=== PATIENT | male | born 1955 | race Caucasian/White ===

== ENCOUNTER 2019-12-16 09:21 | Day surgery (SDC) | payer MEDICARE ==
[~2019-12-16] VITALS: Ht 175.3 cm; Wt 120.8 kg
[2019-12-16] VITALS (9 sets, daily range): BP systolic 120–148; BP diastolic 78–92
[~2019-12-16 09:21] MED LIST: CYAN100070 PO; DOCUMENT DATE & TIME OF BETA-BLOCKER PO ONE; DUTA0.5C17 PO; EXEN10PE3 SQ; FLO0.4C PO; INSU100I31 SQ; LEVO175T2 PO; LISI2.5T2 PO; METF-438 PO; METO-539 PO; MULT-342 PO; WARF10TA50 PO; ceFAZolin 2gm in dextrose, iso 50 ML IV ONE; cefazolin/dext.iso 2gm/100ml 100 ML IV ONE; famotidine 20mg tablet PO ONE; ringers solution, lacted 1,000 ML IV SCH
[2019-12-16 10:40] LABS: PRE OP INR 1.1 INR; PRE OP PROTIME 10.8 SECONDS (9.0-12.0)
[2019-12-16] MEDS ORDERED: BUPIVAcaine/PF 2.5 mg/ml (0.25%) 30ml vial ONE (10:47)
[2019-12-16] MEDS ORDERED: bacitracin 15gm ointment TP ONE (11:04)
[2019-12-16] MEDS ORDERED: sevoflurane 250ml liquid IH ONE (12:04)
[2019-12-16] MEDS ORDERED: fentaNYL/PF 50MCG/1 ML 2ML syringe ONE (12:09)
[2019-12-16] MEDS ORDERED: midazolam 2 mg/2 ml injection ONE (12:09)
[2019-12-16] MEDS ORDERED: ringers solution, lacted 1,000 ML IV SCH (12:28)
[2019-12-16] MEDS ORDERED: proCHLORperazine 10 MG/2 ml inj IV PRN (12:30)
[2019-12-16] MEDS ORDERED: acetaminophen 1,000mg/100ml IV 100 ML IV PRN (12:30)
[2019-12-16] MEDS ORDERED: labetalol 20mg/4ml (5mg/ml) syringe IV PRN (12:30)
[2019-12-16] MEDS ORDERED: hydrALAZINE 20mg/ml inj. IV PRN (12:30)
[2019-12-16] MEDS ORDERED: ondansetron/PF 4mg/2ml inj IV PRN (12:30)
[2019-12-16] MEDS ORDERED: morphine 4 MG/ML inj SYRINge IV PRN (12:30)
[2019-12-16] MEDS ORDERED: meperidine/PF 25mg/ml syringe IV PRN ×2 (12:30)
[2019-12-16] MEDS ORDERED: morphine 2 MG/ML inj. syringe IV PRN (12:30)
[2019-12-16] MEDS ORDERED: propofol inj 20 ML IV ONE (12:52)
[2019-12-16] MEDS ORDERED: ondansetron/PF 4mg/2ml inj ONE (12:52)
[2019-12-16] MEDS ORDERED: ePHEDrine 50MG/ML INJ. ONE (12:52)
[2019-12-16] MEDS ORDERED: 0.9 % SODIUM CHLORIDE 10 ML VIAL ONE (12:52)
[2019-12-16] MEDS ORDERED: LIDOcaine 2% (20mg/ml) 5ml vial ONE (12:52)
[2019-12-16] MEDS ORDERED: dexamethasone sod phosphate 4mg/ml inj. ONE (12:52)
[2019-12-16] MEDS ORDERED: ROPIVAcaine 0.5% (5mg/ml) 30ml vial ONE (14:10)
[2019-12-16] MEDS ORDERED: morphine 10mg/ml inj. ONE (14:10)
--- NOTE | 2019-12-16 14:39 | NUR ---
RECEIVED FROM OR VIA [facility] ACCOMPANIED BY ANESTHESIOLOGIST DR GUTIÉRREZ, REPORT GIVEN. PT AWAKE AND ALERT, NEAL, SKIN PINK AND WARM,VSS, 20 GAUGE PIV L HAND PATENT AND RUNNING LR AT 100 ML/HR. R FOOT DRESSING WITH SPLINT CDI, GOOD CAP REFILL. COMPLAIN OF PAIN AT A LEVEL 10.
[2019-12-16] MEDS: meperidine/PF 25mg/ml syringe IV PRN ×2 (14:46→15:09)
--- NOTE | 2019-12-16 15:34 | NUR ---
PT AWAKE AND ALERT, NEAL, SKIN PINK AND WARM,VSS, 20 GAUGE PIV L HAND DC/D WITH CATH TIP INTACT. R FOOT DRESSING WITH SPLINT CDI, GOOD CAP REFILL. COMPLAIN OF PAIN AT A LEVEL 4-5. DISCHARGE INSTRUCTIONS GIVEN AND PT VERBALIZED UNDERSTANDING. TRANSPORTED TO IN PERSONAL VEHICLE TO HOME.
[2019-12-18] MEDS ORDERED: LEVO50TA8 PO (11:25)
[2019-12-18] MEDS ORDERED: ASPI-611 PO (11:27)
[2019-12-18] MEDS ORDERED: METO25TA6 PO (11:27)
[2019-12-18] MEDS ORDERED: ATOR20TA66 PO (13:46)
[2019-12-18] MEDS ORDERED: TICA90TA PO (13:46)
[2019-12-18] MEDS ORDERED: METO-395 PO (13:46)
== END 2019-12-16 16:09 | disposition home or self-care (01) ==
LOC: PAS 09:21
PROVIDERS: ATTEND Podiatrist Foot & Ankle Surgery
DX: S96.011A Strain of muscle and tendon of long flexor muscle of toe at ankle and foot level, right foot, initial encounter (principal); I25.10 Atherosclerotic heart disease of native coronary artery without angina pectoris; E11.9 Type 2 diabetes mellitus without complications; E66.9 Obesity, unspecified; Z68.39 Body mass index [BMI] 39.0-39.9, adult; I42.9 Cardiomyopathy, unspecified; G89.18 Other acute postprocedural pain; M19.90 Unspecified osteoarthritis, unspecified site; N40.0 Benign prostatic hyperplasia without lower urinary tract symptoms; Z98.890 Other specified postprocedural states; Z86.73 Personal history of transient ischemic attack (TIA), and cerebral infarction without residual deficits; Z95.5 Presence of coronary angioplasty implant and graft; Z96.652 Presence of left artificial knee joint; Z87.11 Personal history of peptic ulcer disease; Z79.01 Long term (current) use of anticoagulants; Z88.8 Allergy status to other drugs, medicaments and biological substances; Z82.49 Family history of ischemic heart disease and other diseases of the circulatory system; Z83.6 Family history of other diseases of the respiratory system; X58.XXXA Exposure to other specified factors, initial encounter; Y93.89 Activity, other specified; Y92.89 Other specified places as the place of occurrence of the external cause; Y99.8 Other external cause status
CPT/HCPCS: 27658; 28740; 36415; 64450; 73620; 76000; 82948; 85610; 85730; A6223; C1713; C9359; J1100; J2001; J2175; J2250; J2270; J2405; J2704; J3010; J3490; J7120; A4215; A4618; A6253; A6446; A6449; A7000; J2795

== ENCOUNTER 2024-02-16 10:54 | Observation (INO) | payer MEDICARE ==
[~2024-02-16] VITALS: Ht 175.3 cm; Wt 130.7 kg
[~2024-02-16 10:54] MED LIST changes: +ASPI-611 PO; +ATOR20TA66 PO; +CLOP75TA34 PO; -DOCUMENT DATE & TIME OF BETA-BLOCKER PO ONE; -DUTA0.5C17 PO; +DUTA0.5C36 PO; -LEVO175T2 PO; +LEVO50TA8 PO; +LISI2.5T14 PO; -LISI2.5T2 PO; +METO-395 PO; -METO-539 PO; -ceFAZolin 2gm in dextrose, iso 50 ML IV ONE; -cefazolin/dext.iso 2gm/100ml 100 ML IV ONE; -famotidine 20mg tablet PO ONE; -ringers solution, lacted 1,000 ML IV SCH
[2024-02-16 11:32] LABS: BASOPHILS % (AUTO) 0.3 % (0-1); EOSINOPHILS # (AUTO) 0.1 X10'3 (0-0.9); EOSINOPHILS % (AUTO) 1.7 % (0-6); HEMATOCRIT 41.7 % (42.0-52.0); HEMOGLOBIN 14.4 g/dl (14.0-17.9); LYMPHOCYTES # (AUTO) 1.3 X10'3 (1.1-4.8); LYMPHOCYTES % (AUTO) 17.5 % (21-51); MEAN CORPUSCULAR HEMOGLOBIN 32.1 PG (27.0-31.0); MEAN CORPUSCULAR HGB CONC 34.6 g/dL (33.0-36.5); MEAN CORPUSCULAR VOLUME 92.9 FL (78-98); MEAN PLATELET VOLUME 7.7 FL (7.4-10.4); MONOCYTES # (AUTO) 0.5 X10'3 (0-0.9); MONOCYTES % (AUTO) 6.4 % (2-12); NEUTROPHILS # (AUTO) 5.5 X10'3 (1.8-7.7); NEUTROPHILS % (AUTO) 74.1 % (42-75); PLATELET COUNT 238 X10'3 (140-440); RED BLOOD COUNT 4.49 X10'6 (4.70-6.10); RED CELL DISTRIBUTION WIDTH 13.7 % (11.5-14.5); WHITE BLOOD COUNT 7.4 X10'3 (4.5-11.0)
[2024-02-16 11:47] LABS: ALBUMIN 3.4 G/DL (3.4-5.0); ANION GAP 6 (8-16); BLOOD UREA NITROGEN 22 MG/DL (7-18); BUN/CREATININE RATIO 19.8 (10.0-20.0); CALCIUM 8.9 MG/DL (8.5-10.1); CHLORIDE 102 MMOL/L (99-107); CREATININE 1.11 MG/DL (0.60-1.10); GLUCOSE 373 MG/DL (70-104); POTASSIUM 4.8 MMOL/L (3.5-5.1); PRO BRAIN NATRIURETIC PEPTIDE 77 PG/ML (0-125); SODIUM 133 MMOL/L (135-145); TOTAL CARBON DIOXIDE 24.9 MMOL/L (24-32); eCRCL 65 ML/MIN; eGFR 66 ML/MIN
[2024-02-16] MEDS ORDERED: potassium Cl 20 mEq SR tablet PO PRN ×2 (14:45)
[2024-02-16] MEDS ORDERED: DEXTROSE 15 GM of carb/4 tabs (each vial/BOTTLE has 4 tablets) PO PRN ×2 (14:45)
[2024-02-16] MEDS ORDERED: aminophylline 250mg/10ml inj. IV PRN (14:45)
[2024-02-16] MEDS ORDERED: potassium Cl 40MEQ/1/2NS 520ml 520 ML IV PRN (14:45)
[2024-02-16] MEDS ORDERED: ondansetron/PF 4mg/2ml inj IV PRN (14:45)
[2024-02-16] MEDS: PERFLUTREN PROTEIN-A MICROSPHR (Optison) 0.22 MG/ML 3ML VIAL IV ONE (14:45)
[2024-02-16] MEDS ORDERED: glucagon, human recombinant 1mg kit SUBCUT PRN (14:45)
[2024-02-16] MEDS ORDERED: dextrose 50%-water 50ml dispensing syringe IV PRN ×2 (14:45)
[2024-02-16] MEDS ORDERED: magnesium sulf-water 4G/100mL 100 ML IV PRN (14:45)
[2024-02-16] MEDS ORDERED: mag hydrox/Alum hydrox/simeth 30ml oral suspension PO PRN (14:45)
[2024-02-16] MEDS ORDERED: magnesium sulf-water 2g/50mL 50 ML IV PRN (14:45)
[2024-02-16] MEDS ORDERED: metoprolol tartrate 1mg/ml inj IV PRN (14:45)
[2024-02-16] MEDS ORDERED: nitroGLYCERIN 0.4mg SUBLingual tab SL PRN (14:45)
[2024-02-16] MEDS ORDERED: magnesium hydroxide 30ml (MOM) UD suspension PO PRN (14:45)
[2024-02-16] MEDS ORDERED: acetaminophen 325mg tablet PO PRN (14:45)
[2024-02-16] MEDS: aspirin 325mg tablet, delayed-release (Ecotrin) PO ONE (16:02)
[2024-02-16] MEDS: normal saline 1000ml 1,000 ML IV SCH (16:02)
[2024-02-16] MEDS: INSULIN LISPRO 100 UNIT/ML INSULN.PEN MULTI-DOSE SQ SCH (18:26)
[2024-02-16 19:42] VITALS: PULSE 74; RESP 12; O2SAT 98
[2024-02-16] MEDS: docusate sod 100mg capsule PO SCH (20:00)
[2024-02-16] MEDS: K and/or MAG REPLACEMENT MC SCH (20:00)
[2024-02-16 21:00] VITALS: RESP 18; O2SAT 96
[2024-02-16 22:00] VITALS: BP 128/65; PULSE 87; RESP 18; TEMP 98; O2SAT 98
[2024-02-16] MEDS: insulin glargine (Lantus) pen - multi-dose SQ SCH (22:22)
[2024-02-16] MEDS ORDERED: APIX5TAB3 PO (23:04)
[2024-02-16] MEDS ORDERED: BACL10TA2 PO (23:07)
[2024-02-16] MEDS ORDERED: METO-411 PO (23:09)
[2024-02-17] VITALS (11 sets, daily range): BP systolic 101–153; BP diastolic 54–86; PULSE 63–86; RESP 16–20; TEMP 96.9–98.1; O2SAT 93–98
[2024-02-17 06:24] LABS: BASOPHILS % (AUTO) 0.3 % (0-1); EOSINOPHILS # (AUTO) 0.1 X10'3 (0-0.9); EOSINOPHILS % (AUTO) 2.2 % (0-6); HEMATOCRIT 39.5 % (42.0-52.0); HEMOGLOBIN 13.4 g/dl (14.0-17.9); LYMPHOCYTES # (AUTO) 1.6 X10'3 (1.1-4.8); LYMPHOCYTES % (AUTO) 23.9 % (21-51); MEAN CORPUSCULAR HEMOGLOBIN 31.1 PG (27.0-31.0); MEAN CORPUSCULAR VOLUME 91.6 FL (78-98); MONOCYTES # (AUTO) 0.4 X10'3 (0-0.9); MONOCYTES % (AUTO) 6.1 % (2-12); NEUTROPHILS # (AUTO) 4.5 X10'3 (1.8-7.7); NEUTROPHILS % (AUTO) 67.5 % (42-75); PLATELET COUNT 225 X10'3 (140-440); RED BLOOD COUNT 4.32 X10'6 (4.70-6.10); RED CELL DISTRIBUTION WIDTH 13.6 % (11.5-14.5); WHITE BLOOD COUNT 6.7 X10'3 (4.5-11.0)
[2024-02-17 06:41] LABS: ALANINE AMINOTRANSFERASE 36 U/L (12-78); ALBUMIN 3.2 G/DL (3.4-5.0); ALKALINE PHOSPHATASE 55 IU/L (46-116); ANION GAP 6 (8-16); ASPARTATE AMINO TRANSFERASE 18 U/L (10-37); BILIRUBIN,TOTAL 0.6 MG/DL (0.1-1.0); BLOOD UREA NITROGEN 16 MG/DL (7-18); BUN/CREATININE RATIO 18.8 (10.0-20.0); CHLORIDE 107 MMOL/L (99-107); CREATININE 0.85 MG/DL (0.60-1.10); GLUCOSE 89 MG/DL (70-104); MAGNESIUM 1.6 MG/DL (1.5-2.4); POTASSIUM 3.6 MMOL/L (3.5-5.1); SODIUM 140 MMOL/L (135-145); TOTAL CARBON DIOXIDE 27.4 MMOL/L (24-32); TOTAL PROTEIN 6.4 G/DL (6.4-8.2); eCRCL 84 ML/MIN; eGFR 90 ML/MIN
[2024-02-17] MEDS: regadenoson 0.4mg/5ml syringe IV PRN (09:01)
== END 2024-02-17 13:40 | disposition home or self-care (01) ==
LOC: ER 10:56 → PCU 3S 14:41 → UNDOADMOB 14:41 → PCU 3S 14:54
PROVIDERS: ADMIT Family Medicine; ATTEND Family Medicine
DX: R07.2 Precordial pain (principal); I48.0 Paroxysmal atrial fibrillation; I12.9 Hypertensive chronic kidney disease with stage 1 through stage 4 chronic kidney disease, or unspecified chronic kidney disease; E11.22 Type 2 diabetes mellitus with diabetic chronic kidney disease; N18.2 Chronic kidney disease, stage 2 (mild); I25.10 Atherosclerotic heart disease of native coronary artery without angina pectoris; E78.00 Pure hypercholesterolemia, unspecified; N40.0 Benign prostatic hyperplasia without lower urinary tract symptoms; F03.90 Unspecified dementia, unspecified severity, without behavioral disturbance, psychotic disturbance, mood disturbance, and anxiety; I25.2 Old myocardial infarction; N17.9 Acute kidney failure, unspecified; I48.20 Chronic atrial fibrillation, unspecified; K21.00 Gastro-esophageal reflux disease with esophagitis, without bleeding; E03.9 Hypothyroidism, unspecified; Z79.84 Long term (current) use of oral hypoglycemic drugs; Z79.899 Other long term (current) drug therapy; Z88.1 Allergy status to other antibiotic agents; Z86.718 Personal history of other venous thrombosis and embolism; Z87.11 Personal history of peptic ulcer disease; Z87.19 Personal history of other diseases of the digestive system; Z95.5 Presence of coronary angioplasty implant and graft; Z86.711 Personal history of pulmonary embolism
CPT/HCPCS: 36415; 71045; 78452; 80048; 80053; 82948; 83036; 83735; 83880; 84484; 85025; 87081; 93005; 93017; 93306; 94660; 94760; 96360; 96361; 99284; A9500; G0378; J1815; J2785; J7030

== ENCOUNTER 2024-03-16 10:34 | Inpatient (IN) | payer MEDICARE ==
[~2024-03-16] VITALS: Ht 175.3 cm; Wt 130.0 kg
[2024-03-16] VITALS (14 sets, daily range): BP systolic 113–149; BP diastolic 56–83; PULSE 59–92; RESP 16–17; TEMP 97.7–98.6; O2SAT 93–99
[~2024-03-16 10:34] MED LIST changes: +APIX5TAB3 PO; -ATOR20TA66 PO; +BACL10TA2 PO; -CLOP75TA34 PO; -EXEN10PE3 SQ; -INSU100I31 SQ; -METO-395 PO; +METO-411 PO; -WARF10TA50 PO
[2024-03-16] MEDS ORDERED: dextrose 50%-water 50ml dispensing syringe IV PRN (11:05)
[2024-03-16] MEDS ORDERED: nitroGLYCERIN 0.4mg SUBLingual tab SL PRN ×2 (11:05→14:45)
[2024-03-16] MEDS ORDERED: DEXTROSE 15 GM of carb/4 tabs (each vial/BOTTLE has 4 tablets) PO PRN ×2 (11:05)
[2024-03-16] MEDS ORDERED: glucagon, human recombinant 1mg kit SUBCUT PRN (11:05)
[2024-03-16] MEDS: dextrose 50%-water 50ml dispensing syringe IV PRN (11:29)
[2024-03-16] MEDS: normal saline 1,000 ML IV SCH (11:31)
[2024-03-16] MEDS ORDERED: INSU100V41 SQ (11:32)
[2024-03-16] MEDS ORDERED: FOLI0.4T14 PO (11:32)
[2024-03-16] MEDS ORDERED: DUTA0.5C40 PO (11:32)
[2024-03-16 11:37] LABS: BASOPHILS % (AUTO) 0.3 % (0-1); EOSINOPHILS # (AUTO) 0.1 X10'3 (0-0.9); EOSINOPHILS % (AUTO) 1.7 % (0-6); HEMATOCRIT 41.8 % (42.0-52.0); HEMOGLOBIN 14.2 g/dl (14.0-17.9); LYMPHOCYTES # (AUTO) 1.9 X10'3 (1.1-4.8); LYMPHOCYTES % (AUTO) 23.3 % (21-51); MEAN CORPUSCULAR HEMOGLOBIN 31.5 PG (27.0-31.0); MEAN CORPUSCULAR HGB CONC 33.9 g/dL (33.0-36.5); MEAN PLATELET VOLUME 7.3 FL (7.4-10.4); MONOCYTES # (AUTO) 0.5 X10'3 (0-0.9); MONOCYTES % (AUTO) 6.3 % (2-12); NEUTROPHILS # (AUTO) 5.5 X10'3 (1.8-7.7); NEUTROPHILS % (AUTO) 68.4 % (42-75); PLATELET COUNT 243 X10'3 (140-440); RED CELL DISTRIBUTION WIDTH 13.7 % (11.5-14.5)
[2024-03-16 11:44] LABS: APTT 26 SECONDS (22-32); PROTHROMBIN TIME 10.3 SECONDS (9.0-12.0)
[2024-03-16 11:47] LABS: ALBUMIN 3.7 G/DL (3.4-5.0); ANION GAP 10 (8-16); BLOOD UREA NITROGEN 20 MG/DL (7-18); BUN/CREATININE RATIO 23.5 (10.0-20.0); CALCIUM 9.5 MG/DL (8.5-10.1); CHLORIDE 104 MMOL/L (99-107); CREATININE 0.85 MG/DL (0.60-1.10); GLUCOSE 80 MG/DL (70-104); POTASSIUM 3.9 MMOL/L (3.5-5.1); SODIUM 140 MMOL/L (135-145); TOTAL CARBON DIOXIDE 26.3 MMOL/L (24-32); eCRCL 84 ML/MIN; eGFR 90 ML/MIN
[2024-03-16] MEDS: diphenhydrAMINE 25mg capsule PO PRN (12:22)
[2024-03-16] MEDS: LORazepam 0.5 MG tablet PO PRN (12:22)
[2024-03-16] MEDS ORDERED: midazolam 1 mg/ML 2ml injection ONE (12:33)
[2024-03-16] MEDS ORDERED: iohexol 350 MG/ML 50ML vial IV ONE ×2 (12:33→13:31)
[2024-03-16] MEDS ORDERED: fentaNYL/PF 50MCG/1 ML 2ML syringe ONE (12:33)
[2024-03-16] MEDS ORDERED: iohexol 350MG/ML 100ml bottle IV ONE (12:33)
[2024-03-16] MEDS ORDERED: LIDOcaine 1% 30ml preserv. free vial ONE (12:33)
[2024-03-16] MEDS ORDERED: enalaprilat dihydrate 2.5mg/2ml vial IV ONE (13:39)
[2024-03-16] MEDS ORDERED: nitroGLYCERIN 500mcg/5mL D5W 5 ML IV ONE (13:41)
[2024-03-16] MEDS ORDERED: nitroGLYCERIN-Tridil 50MG/D5W 250 ML IV ONE (13:42)
[2024-03-16] MEDS ORDERED: HYDROmorphone 1 mg/ml syringe ONE (13:47)
[2024-03-16] MEDS ORDERED: hydrALAZINE 20mg/ml inj. IV ONE (13:52)
[2024-03-16] MEDS ORDERED: HYDROcodone/acetaminophen 5mg/325mg tablet PO PRN (14:45)
[2024-03-16] MEDS ORDERED: nitroGLYCERIN 25mg/250mL D5W 250 ML IV SCH (14:45)
[2024-03-16] MEDS ORDERED: proCHLORperazine 10 MG/2 ml inj IV PRN (14:45)
[2024-03-16] MEDS ORDERED: ondansetron/PF 4mg/2ml inj IV PRN (14:45)
[2024-03-16] MEDS ORDERED: normal saline 1000ml 1,000 ML IV SCH (14:45)
[2024-03-16] MEDS: HYDROcodone/acetaminophen 10/325mg tab PO PRN (14:46)
[2024-03-16] MEDS ORDERED: nitroGLYCERIN-Tridil 50MG/D5W 250 ML IV SCH (14:49)
[2024-03-16] MEDS: HYDROmorphone 1 mg/ml syringe IV SCH (15:14)
[2024-03-16] MEDS: MESSAGE TO NURSING PO ONE ×4 (15:30)
[2024-03-16] MEDS: diphenhydrAMINE 50 mg/ml inj IM ONE (18:55)
[2024-03-16] MEDS: tamsulosin 0.4mg capsule PO SCH (19:18)
[2024-03-16] MEDS: insulin glargine (Lantus) pen - multi-dose SQ SCH (21:17)
[2024-03-17 02:00] VITALS: BP 129/78; PULSE 81; RESP 12; TEMP 97.8; O2SAT 96
[2024-03-17 07:00] VITALS: BP 151/70; PULSE 68; RESP 18; TEMP 97.7; O2SAT 96
[2024-03-17] MEDS: metoprolol succinate 25mg (24-HOUR) SR. Tablet PO SCH (07:48)
[2024-03-17] MEDS: folic acid 0.4mg tablet PO SCH (07:48)
[2024-03-17] MEDS: levoTHYROXINE 25mcg tablet PO SCH (07:48)
[2024-03-17] MEDS: multivitamins, therapeutics tablet PO SCH (07:49)
[2024-03-17] MEDS: cyanocobalamin 500mcg tablet PO SCH (07:49)
[2024-03-17] MEDS: dutasteride 0.5 MG capsule PO SCH (08:27)
[2024-03-17] MEDS ORDERED: dextrose 50%-water 50ml dispensing syringe IV PRN (09:55)
[2024-03-17] MEDS: ceFAZolin inj. 3,000 MG in normal saline 100ml IV soln 100 ML IV ONE (09:55)
[2024-03-17] MEDS: MESSAGE TO PHARMACY IJ ONE (09:55)
[2024-03-17] MEDS ORDERED: insulin glargine (Lantus) pen - multi-dose SQ PRN (09:55)
[2024-03-17] MEDS: MESSAGE TO NURSING PO ONE ×5 (09:55→10:00)
[2024-03-17] MEDS ORDERED: Insulin Reg/NS 100units/100mL 100 ML IV SCH (09:55)
[2024-03-17 11:00] VITALS: BP 119/65; PULSE 62; RESP 18; TEMP 98.2; O2SAT 96
[2024-03-17 11:11] LABS: APTT 25 SECONDS (22-32); PROTHROMBIN TIME 10.7 SECONDS (9.0-12.0)
[2024-03-17 15:00] VITALS: BP 133/74; PULSE 77; RESP 17; TEMP 97.5; O2SAT 95
[2024-03-17 18:00] VITALS: BP 126/81; PULSE 66; RESP 14; TEMP 97.9; O2SAT 94
[2024-03-17] MEDS: OXAZEpam 15mg capsule PO PRN (21:26)
[2024-03-17 22:00] VITALS: BP 144/84; PULSE 78; RESP 14; TEMP 97.3; O2SAT 97
[2024-03-18] VITALS (7 sets, daily range): BP systolic 123–149; BP diastolic 64–86; PULSE 54–87; RESP 15–18; TEMP 97.1–97.8; O2SAT 95–96
[2024-03-18] MEDS: ringers solution, lacted 1,000 ML IV ONE (05:00)
[2024-03-18] MEDS: LORazepam 2 mg/ml vial IV ONE (06:00)
[2024-03-18] MEDS: gabapentin 400mg capsule PO ONE (07:19)
[2024-03-19] VITALS (34 sets, daily range): BP systolic 69–181; BP diastolic 40–90; PULSE 72–92; RESP 12–18; TEMP 97.1–98.7; O2SAT 92–100
[2024-03-19] MEDS: mupirocin 2% nasal ointment 1gm UD NS ONE (05:21)
[2024-03-19] MEDS: ringers solution, lacted 1,000 ML IV ONE (05:30)
[2024-03-19] MEDS: ceFAZolin inj. 3,000 MG in normal saline 100ml IV soln 100 ML IV ONE (05:30)
[2024-03-19] MEDS: LORazepam 2 mg/ml vial IV ONE (05:30)
[2024-03-19 05:57] LABS: MEAN PLATELET VOLUME 7.4 FL (7.4-10.4); WHITE BLOOD COUNT 6.9 X10'3 (4.5-11.0)
[2024-03-19 06:01] LABS: BASOPHILS % (AUTO) 0.3 % (0-1); EOSINOPHILS # (AUTO) 0.2 X10'3 (0-0.9); HEMATOCRIT 39.5 % (42.0-52.0); HEMOGLOBIN 13.6 g/dl (14.0-17.9); LYMPHOCYTES # (AUTO) 1.8 X10'3 (1.1-4.8); LYMPHOCYTES % (AUTO) 26.1 % (21-51); MEAN CORPUSCULAR HEMOGLOBIN 32.1 PG (27.0-31.0); MEAN CORPUSCULAR HGB CONC 34.3 g/dL (33.0-36.5); MEAN CORPUSCULAR VOLUME 93.4 FL (78-98); MONOCYTES # (AUTO) 0.6 X10'3 (0-0.9); MONOCYTES % (AUTO) 8.3 % (2-12); NEUTROPHILS # (AUTO) 4.3 X10'3 (1.8-7.7); NEUTROPHILS % (AUTO) 62.3 % (42-75); PLATELET COUNT 214 X10'3 (140-440); RED BLOOD COUNT 4.23 X10'6 (4.70-6.10); RED CELL DISTRIBUTION WIDTH 13.8 % (11.5-14.5)
[2024-03-19 06:18] LABS: ALBUMIN 3.3 G/DL (3.4-5.0); ANION GAP 10 (8-16); BLOOD UREA NITROGEN 17 MG/DL (7-18); BUN/CREATININE RATIO 19.3 (10.0-20.0); CHLORIDE 102 MMOL/L (99-107); CREATININE 0.88 MG/DL (0.60-1.10); GLUCOSE 150 MG/DL (70-104); POTASSIUM 3.8 MMOL/L (3.5-5.1); SODIUM 139 MMOL/L (135-145); THYROID STIMULATING HORMONE 1.33 ulU/ml (0.34-4.50); TOTAL CARBON DIOXIDE 27.5 MMOL/L (24-32); eCRCL 81 ML/MIN; eGFR 86 ML/MIN
[2024-03-19 08:09] LABS: PROTHROMBIN TIME 10.6 SECONDS (9.0-12.0)
[2024-03-19] MEDS ORDERED: ceFAZolin inj. 3,000 MG in normal saline 100ml IV soln 100 ML IV ONE (08:30)
[2024-03-19] MEDS: Insulin Reg/NS 100units/100mL 100 ML IV SCH ×2 (08:30→15:30)
[2024-03-19] MEDS ORDERED: isoflurane 100ml inhalation liquid IH ONE (08:36)
[2024-03-19] MEDS ORDERED: MIDAZolam 1mg/ml 10ml vial ONE (08:38)
[2024-03-19] MEDS ORDERED: SUfentanil 50mcg/ml 1ml amp IV ONE (08:38)
[2024-03-19 09:06] LABS: ABG BASE EXCESS -0.4 mmol/L (-2.0-2.0); ABG HCO3 24.2 mmol/L (22.0-26.0); ABG OXYGEN SATURATION 98.2 % (92-98.5); ABG PCO2 39.7 mmHg (35.0-48.0); ABG PH 7.403 (7.340-7.440); ABG PO2 136.6 mmHg (75.0-100.0); CL (ABG) 106 mmol/L (99-107); FCOHb 0.1 % (0.5-1.5); FHHb 1.8 % (0.0-5.0); FMetHb 0.3 % (0.0-1.5); FO2Hb 97.8 % (94-97); GLUCOSE (ABG) 125 mg/dl (70-104); IONIZED CA (ABG) 1.13 mmol/L (1.10-1.30); K (ABG) 3.8 mmol/L (3.5-5.1); TOTAL HEMOGLOBIN 12.9 G/dl (14.0-17.9)
[2024-03-19] MEDS: BUPIVAcaine 2.5mg/ml inj 50ml vial (contains preservative) ONE (09:27)
[2024-03-19] MEDS: ceFAZolin 1000mg inj ONE (09:27)
[2024-03-19] MEDS ORDERED: LIDOcaine 2% (20mg/ml) 5ml vial ONE (09:31)
[2024-03-19] MEDS ORDERED: propofol inj 20 ML IV ONE (09:31)
[2024-03-19] MEDS ORDERED: rocuronium 10mg/ml inj IV ONE ×4 (09:31→14:47)
[2024-03-19] MEDS ORDERED: phenylephrine 10mg/ml inj. -priapism dosing ONE (09:32)
[2024-03-19] MEDS ORDERED: 0.9 % SODIUM CHLORIDE 10 ML VIAL ONE (09:32)
[2024-03-19 10:59] LABS: ABG BASE EXCESS -3.2 mmol/L (-2.0-2.0); ABG HCO3 21.9 mmol/L (22.0-26.0); ABG PCO2 39.5 mmHg (35.0-48.0); ABG PH 7.362 (7.340-7.440); ABG PO2 194.4 mmHg (75.0-100.0); CL (ABG) 104 mmol/L (99-107); FCOHb 0.3 % (0.5-1.5); FMetHb 0.3 % (0.0-1.5); FO2Hb 98.4 % (94-97); GLUCOSE (ABG) 130 mg/dl (70-104); IONIZED CA (ABG) 1.17 mmol/L (1.10-1.30); K (ABG) 4.1 mmol/L (3.5-5.1); TOTAL HEMOGLOBIN 13.1 G/dl (14.0-17.9)
[2024-03-19 12:04] LABS: ABG BASE EXCESS 1.4 mmol/L (-2.0-2.0); ABG HCO3 25.7 mmol/L (22.0-26.0); ABG OXYGEN SATURATION 98.8 % (92-98.5); ABG PCO2 39.3 mmHg (35.0-48.0); ABG PH 7.434 (7.340-7.440); ABG PO2 236.6 mmHg (75.0-100.0); CL (ABG) 104 mmol/L (99-107); FCOHb 0.3 % (0.5-1.5); FHHb 1.2 % (0.0-5.0); FMetHb 0.3 % (0.0-1.5); FO2Hb 98.2 % (94-97); GLUCOSE (ABG) 130 mg/dl (70-104); IONIZED CA (ABG) 1.02 mmol/L (1.10-1.30); K (ABG) 4.5 mmol/L (3.5-5.1); TOTAL HEMOGLOBIN 9.9 G/dl (14.0-17.9)
[2024-03-19 12:26] LABS: ABG BASE EXCESS VENOUS 0.7 mmol/L (-2.0 - 2.0); ABG HCO3 VENOUS 25.9 mmol/L (21.0-28.0); ABG OXYGEN SATURATION VENOUS 80.4 % (75 - 99 %); ABG PCO2 VENOUS 43.7 mmHg (41.0-54.0); ABG PO2 VENOUS 45.4 mmHg (25.0-35.0); CL (ABG) 104 mmol/L (99-107); FCOHb VENOUS 0.1 % (0.0-3.9); FHHb VENOUS 19.5 %; FMetHb VENOUS 0.3 % (0.0-0.5); FO2Hb VENOUS 80.1 %; GLUCOSE (ABG) 128 mg/dl (70-104); IONIZED CA (ABG) 1.07 mmol/L (1.10-1.30); K (ABG) 4.2 mmol/L (3.5-5.1)
[2024-03-19 13:07] LABS: ABG BASE EXCESS -0.2 mmol/L (-2.0-2.0); ABG HCO3 24.4 mmol/L (22.0-26.0); ABG OXYGEN SATURATION 98.8 % (92-98.5); ABG PH 7.404 (7.340-7.440); ABG PO2 256.2 mmHg (75.0-100.0); CL (ABG) 105 mmol/L (99-107); FCOHb 0.3 % (0.5-1.5); FHHb 1.2 % (0.0-5.0); FMetHb 0.3 % (0.0-1.5); FO2Hb 98.2 % (94-97); GLUCOSE (ABG) 132 mg/dl (70-104); IONIZED CA (ABG) 1.07 mmol/L (1.10-1.30)
[2024-03-19 13:39] LABS: ABG BASE EXCESS -0.1 mmol/L (-2.0-2.0); ABG HCO3 24.7 mmol/L (22.0-26.0); ABG OXYGEN SATURATION 98.5 % (92-98.5); ABG PCO2 40.6 mmHg (35.0-48.0); ABG PH 7.402 (7.340-7.440); ABG PO2 182.8 mmHg (75.0-100.0); CL (ABG) 104 mmol/L (99-107); FCOHb 0.3 % (0.5-1.5); FHHb 1.5 % (0.0-5.0); FMetHb 0.3 % (0.0-1.5); FO2Hb 97.9 % (94-97); GLUCOSE (ABG) 144 mg/dl (70-104); IONIZED CA (ABG) 1.38 mmol/L (1.10-1.30); K (ABG) 4.5 mmol/L (3.5-5.1); TOTAL HEMOGLOBIN 9.9 G/dl (14.0-17.9)
[2024-03-19 14:00] LABS: ABG BASE EXCESS -1.4 mmol/L (-2.0-2.0); ABG OXYGEN SATURATION 95.7 % (92-98.5); ABG PCO2 37.6 mmHg (35.0-48.0); ABG PH 7.405 (7.340-7.440); ABG PO2 87.9 mmHg (75.0-100.0); CL (ABG) 106 mmol/L (99-107); FCOHb 0.3 % (0.5-1.5); FHHb 4.3 % (0.0-5.0); FMetHb 0.3 % (0.0-1.5); FO2Hb 95.1 % (94-97); GLUCOSE (ABG) 151 mg/dl (70-104); IONIZED CA (ABG) 1.17 mmol/L (1.10-1.30); K (ABG) 3.8 mmol/L (3.5-5.1); TOTAL HEMOGLOBIN 10.6 G/dl (14.0-17.9)
[2024-03-19 14:03] LABS: ACTIVATED CLOTTING TIME 146 SEC (101-148)
[2024-03-19] MEDS ORDERED: fentaNYL/PF 50MCG/1 ML 2ML syringe IV PRN (14:35)
[2024-03-19] MEDS: FENTANYL-0.9 % NACL/PF 100 ML IV SCH (14:35)
[2024-03-19] MEDS: MIDAZOLAM IN NACL,ISO-OSMOT/PF 100 ML IV SCH (14:35)
[2024-03-19] MEDS ORDERED: albumin (Human) 5% 250ml 250 ML IV ONE (14:41)
[2024-03-19] MEDS ORDERED: ceFAZolin 1000mg inj ONE ×2 (14:47)
[2024-03-19] MEDS ORDERED: ondansetron/PF 4mg/2ml inj ONE (14:47)
[2024-03-19] MEDS ORDERED: dexamethasone sod phosphate 4mg/ml inj. ONE (14:47)
[2024-03-19] MEDS: midazolam 1 mg/ML 2ml injection IV ONE (15:00)
[2024-03-19] MEDS ORDERED: morphine 4 MG/ML inj SYRINge ONE (15:09)
[2024-03-19] MEDS ORDERED: metoclopramide 5 mg/ml inj IV PRN (15:30)
[2024-03-19] MEDS ORDERED: potassium Cl 20 mEq SR tablet PO PRN (15:30)
[2024-03-19] MEDS ORDERED: nitroGLYCERIN-Tridil 50MG/D5W 250 ML IV PRN (15:30)
[2024-03-19] MEDS ORDERED: potassium Cl 40MEQ/1/2NS 520ml 520 ML IV PRN (15:30)
[2024-03-19] MEDS ORDERED: niCARDipine-NS 40mg/200ml IVPB 200 ML IV PRN (15:30)
[2024-03-19] MEDS ORDERED: mineral oil 133ml enema RC PRN (15:30)
[2024-03-19] MEDS ORDERED: DOPamine 400mg/D5W 250ml 250 ML IV PRN (15:30)
[2024-03-19] MEDS ORDERED: potassium Cl 40MEQ/270ML bag 250 ML IV PRN (15:30)
[2024-03-19] MEDS ORDERED: bisacodyl 10mg suppository rectal RC PRN (15:30)
[2024-03-19] MEDS ORDERED: magnesium hydroxide 30ml (MOM) UD suspension PO PRN (15:30)
[2024-03-19] MEDS ORDERED: Neutra Phos packet PO PRN (15:30)
[2024-03-19] MEDS ORDERED: dextrose 50%-water 50ml dispensing syringe IV PRN (15:30)
[2024-03-19] MEDS ORDERED: morphine 4 MG/ML inj SYRINge IV PRN (15:30)
[2024-03-19] MEDS ORDERED: ondansetron/PF 4mg/2ml inj IV PRN (15:30)
[2024-03-19] MEDS ORDERED: normal saline 250ml IV soln 250 ML IV PRN (15:30)
[2024-03-19] MEDS ORDERED: sodium phosphate inj. 30 MMOL in dextrose 5%-water 250 ML IV PRN (15:30)
[2024-03-19] MEDS ORDERED: acetaminophen 325mg tablet PO PRN ×2 (15:30)
[2024-03-19] MEDS ORDERED: insulin glargine (Lantus) pen - multi-dose SQ PRN (15:30)
[2024-03-19] MEDS ORDERED: potassium CL 10mEq/100ml bag 100 ML IV PRN (15:30)
[2024-03-19 15:59] LABS: ABG BASE EXCESS -2.5 mmol/L (-2.0-2.0); ABG HCO3 22.7 mmol/L (22.0-26.0); ABG OXYGEN SATURATION 98.6 % (92-98.5); ABG PCO2 (T) 38.5 mmHg (35.0-48.0); ABG PH (T) 7.382 (7.340-7.440); ABG PO2 (T) 142.2 mmHg (75.0-100.0); FCOHb 0.4 % (0.5-1.5); FHHb 1.4 % (0.0-5.0); FMetHb 0.3 % (0.0-1.5); FO2Hb 97.9 % (94-97); MODE VENT - SIMV; PATIENT TEMPERATURE 35.7; PEEP 5 cm H2O; RESPIRATORY RATE 12 b/min; TIDAL VOLUME 600 mL
[2024-03-19] MEDS: NORepinephrine 8mg/ 250ml NS 250 ML IV SCH (16:00)
[2024-03-19 16:10] LABS: BASOPHILS % (AUTO) 0 % (0-1); EOSINOPHILS % (AUTO) 0.2 % (0-6); HEMATOCRIT 35.6 % (42.0-52.0); HEMOGLOBIN 11.9 g/dl (14.0-17.9); LYMPHOCYTES # (AUTO) 1.1 X10'3 (1.1-4.8); LYMPHOCYTES % (AUTO) 7.4 % (21-51); MEAN CORPUSCULAR HEMOGLOBIN 31.2 PG (27.0-31.0); MEAN CORPUSCULAR HGB CONC 33.5 g/dL (33.0-36.5); MEAN PLATELET VOLUME 7.4 FL (7.4-10.4); MONOCYTES # (AUTO) 0.6 X10'3 (0-0.9); NEUTROPHILS # (AUTO) 13.3 X10'3 (1.8-7.7); NEUTROPHILS % (AUTO) 88.4 % (42-75); PLATELET COUNT 192 X10'3 (140-440); RED BLOOD COUNT 3.82 X10'6 (4.70-6.10); RED CELL DISTRIBUTION WIDTH 13.7 % (11.5-14.5)
[2024-03-19 16:27] LABS: APTT 26 SECONDS (22-32); FIBRINOGEN 301 MG/DL (177-424); INR 1.1 INR; PROTHROMBIN TIME 11.7 SECONDS (9.0-12.0)
[2024-03-19 16:30] LABS: ALANINE AMINOTRANSFERASE 33 U/L (12-78); ALBUMIN 2.8 G/DL (3.4-5.0); ALBUMIN/GLOBULIN RATIO 1.2 (1.1-1.5); ALKALINE PHOSPHATASE 42 IU/L (46-116); ANION GAP 10 (8-16); ASPARTATE AMINO TRANSFERASE 41 U/L (10-37); BILIRUBIN,TOTAL 1.4 MG/DL (0.1-1.0); BLOOD UREA NITROGEN 14 MG/DL (7-18); BUN/CREATININE RATIO 17.9 (10.0-20.0); CALCIUM 7.8 MG/DL (8.5-10.1); CHLORIDE 109 MMOL/L (99-107); CREATININE 0.78 MG/DL (0.60-1.10); GLUCOSE 150 MG/DL (70-104); PHOSPHORUS 2.6 MG/DL (2.3-4.5); POTASSIUM 3.7 MMOL/L (3.5-5.1); SODIUM 143 MMOL/L (135-145); TOTAL CARBON DIOXIDE 23.6 MMOL/L (24-32); TOTAL PROTEIN 5.1 G/DL (6.4-8.2); eCRCL 92 ML/MIN; eGFR > 90 ML/MIN
[2024-03-19] MEDS: morphine 2 MG/ML inj. syringe IV PRN (16:42)
[2024-03-19] MEDS: sodium chloride 0.45% 1,000 ML IV SCH (16:44)
[2024-03-19] MEDS: albumin (Human) 5% 250ml 250 ML IV PRN (16:47)
[2024-03-19] MEDS: ceFAZolin/D5W- 1GM premix 50 ML IV SCH (17:19)
[2024-03-19] MEDS: potassium Cl 20mEq/100mL bag 100 ML IV PRN (17:59)
[2024-03-19] MEDS: magnesium sulf-water 4G/100mL 100 ML IV PRN (18:19)
[2024-03-19] MEDS: dexmedetomidin/NS 400mcg/100ml 100 ML IV SCH (18:58)
[2024-03-19] MEDS: ringers solution, lacted 1,000 ML IV SCH (19:02)
[2024-03-19] MEDS: aspirin 300mg supp.rect RC ONE (19:37)
[2024-03-19] MEDS: sennosides/docusate sodium tablet PO SCH (20:00)
[2024-03-19] MEDS: mupirocin 2% nasal ointment 1gm UD NS SCH (20:23)
[2024-03-19] MEDS: vancomycin/NS 1 GM ADD-VANTAGE 250 ML IV SCH (20:23)
[2024-03-19] MEDS ORDERED: atorvastatin 10mg tablet PO SCH (21:00)
[2024-03-19] MEDS ORDERED: gabapentin 300mg capsule PO SCH (21:00)
[2024-03-19 22:12] LABS: BASOPHILS % (AUTO) 0 % (0-1); EOSINOPHILS % (AUTO) 0 % (0-6); HEMATOCRIT 29.5 % (42.0-52.0); HEMOGLOBIN 10.1 g/dl (14.0-17.9); LYMPHOCYTES # (AUTO) 0.3 X10'3 (1.1-4.8); LYMPHOCYTES % (AUTO) 2.7 % (21-51); MEAN CORPUSCULAR HEMOGLOBIN 31.7 PG (27.0-31.0); MEAN CORPUSCULAR HGB CONC 34.1 g/dL (33.0-36.5); MEAN PLATELET VOLUME 7.3 FL (7.4-10.4); MONOCYTES # (AUTO) 0.4 X10'3 (0-0.9); MONOCYTES % (AUTO) 4.1 % (2-12); NEUTROPHILS # (AUTO) 9.8 X10'3 (1.8-7.7); NEUTROPHILS % (AUTO) 93.2 % (42-75); PLATELET COUNT 149 X10'3 (140-440); RED BLOOD COUNT 3.18 X10'6 (4.70-6.10); RED CELL DISTRIBUTION WIDTH 13.3 % (11.5-14.5); WHITE BLOOD COUNT 10.5 X10'3 (4.5-11.0)
[2024-03-19 22:24] LABS: ALBUMIN 3.1 G/DL (3.4-5.0); ANION GAP 8 (8-16); BLOOD UREA NITROGEN 17 MG/DL (7-18); BUN/CREATININE RATIO 16.7 (10.0-20.0); CHLORIDE 110 MMOL/L (99-107); CREATININE 1.02 MG/DL (0.60-1.10); GLUCOSE 119 MG/DL (70-104); MAGNESIUM 2.7 MG/DL (1.5-2.4); PHOSPHORUS 1.8 MG/DL (2.3-4.5); SODIUM 143 MMOL/L (135-145); TOTAL CARBON DIOXIDE 24.7 MMOL/L (24-32); eCRCL 70 ML/MIN; eGFR 73 ML/MIN
[2024-03-20] VITALS (25 sets, daily range): BP systolic 91–151; BP diastolic 52–74; PULSE 75–104; RESP 12–17; O2SAT 92–97
[2024-03-20 00:04] LABS: ABG BASE EXCESS -1.1 mmol/L (-2.0-2.0); ABG HCO3 22.8 mmol/L (22.0-26.0); ABG OXYGEN SATURATION 96.5 % (92-98.5); ABG PCO2 (T) 35.5 mmHg (35.0-48.0); ABG PH (T) 7.427 (7.340-7.440); ABG PO2 (T) 92.8 mmHg (75.0-100.0); FCOHb 0.3 % (0.5-1.5); FHHb 3.5 % (0.0-5.0); FMetHb 0.3 % (0.0-1.5); FO2Hb 95.9 % (94-97); MODE VENT - CPAP; PATIENT TEMPERATURE 37.2; PEEP 5 cm H2O; TOTAL HEMOGLOBIN 10.8 G/dl (14.0-17.9)
[2024-03-20] MEDS: sodium phosphate inj. 15 MMOL in dextrose 5%-water 250 ML IV PRN (00:10)
[2024-03-20] MEDS: HYDROcodone/acetaminophen 10/325mg tab PO PRN ×2 (02:46→07:35)
[2024-03-20 04:30] LABS: BASOPHILS % (AUTO) 0.2 % (0-1); EOSINOPHILS % (AUTO) 0 % (0-6); HEMATOCRIT 28.8 % (42.0-52.0); HEMOGLOBIN 9.7 g/dl (14.0-17.9); LYMPHOCYTES # (AUTO) 0.4 X10'3 (1.1-4.8); LYMPHOCYTES % (AUTO) 3.3 % (21-51); MEAN CORPUSCULAR HEMOGLOBIN 31.4 PG (27.0-31.0); MEAN CORPUSCULAR HGB CONC 33.7 g/dL (33.0-36.5); MEAN PLATELET VOLUME 7.5 FL (7.4-10.4); MONOCYTES # (AUTO) 0.6 X10'3 (0-0.9); MONOCYTES % (AUTO) 4.9 % (2-12); NEUTROPHILS # (AUTO) 11.4 X10'3 (1.8-7.7); NEUTROPHILS % (AUTO) 91.6 % (42-75); PLATELET COUNT 146 X10'3 (140-440); RED CELL DISTRIBUTION WIDTH 13.8 % (11.5-14.5); WHITE BLOOD COUNT 12.5 X10'3 (4.5-11.0)
[2024-03-20 04:39] LABS: ALANINE AMINOTRANSFERASE 25 U/L (12-78); ALBUMIN/GLOBULIN RATIO 1.3 (1.1-1.5); ALKALINE PHOSPHATASE 34 IU/L (46-116); ANION GAP 8 (8-16); ASPARTATE AMINO TRANSFERASE 46 U/L (10-37); BILIRUBIN,TOTAL 0.8 MG/DL (0.1-1.0); BLOOD UREA NITROGEN 16 MG/DL (7-18); BUN/CREATININE RATIO 21.1 (10.0-20.0); CALCIUM 7.9 MG/DL (8.5-10.1); CHLORIDE 108 MMOL/L (99-107); CREATININE 0.76 MG/DL (0.60-1.10); GLUCOSE 156 MG/DL (70-104); MAGNESIUM 2.3 MG/DL (1.5-2.4); PHOSPHORUS 3.1 MG/DL (2.3-4.5); POTASSIUM 4.8 MMOL/L (3.5-5.1); SODIUM 140 MMOL/L (135-145); TOTAL CARBON DIOXIDE 23.7 MMOL/L (24-32); TOTAL PROTEIN 5.3 G/DL (6.4-8.2); eCRCL 94 ML/MIN; eGFR > 90 ML/MIN
[2024-03-20 04:42] LABS: APTT 26 SECONDS (22-32); PROTHROMBIN TIME 10.9 SECONDS (9.0-12.0)
[2024-03-20] MEDS: magnesium sulf-water 2g/50mL 50 ML IV PRN (04:52)
[2024-03-20] MEDS: aspirin 81mg tab.chew PO SCH (07:32)
[2024-03-20] MEDS: metoprolol tartrate 12.5mg (1/2 tablet) PO SCH (07:33)
[2024-03-20] MEDS ORDERED: CYAN-104 PO (14:23)
[2024-03-20] MEDS ORDERED: mineral oil/petrolatum ophthal oint EACHEYE SCH (20:00)
[2024-03-20] MEDS: apixaban 5mg tablet PO SCH (20:08)
[2024-03-20] MEDS ORDERED: amiodarone 150mg/dext, iso-os 100 ML IV ONE (22:15)
[2024-03-20] MEDS: amiodarone 150mg/dext, iso-os 100 ML IV ONE (22:29)
[2024-03-20 22:35] LABS: ALBUMIN 2.8 G/DL (3.4-5.0); ANION GAP 4 (8-16); BLOOD UREA NITROGEN 14 MG/DL (7-18); BUN/CREATININE RATIO 16.7 (10.0-20.0); CALCIUM 8.2 MG/DL (8.5-10.1); CHLORIDE 105 MMOL/L (99-107); CREATININE 0.84 MG/DL (0.60-1.10); GLUCOSE 127 MG/DL (70-104); MAGNESIUM 1.8 MG/DL (1.5-2.4); POTASSIUM 4.2 MMOL/L (3.5-5.1); SODIUM 138 MMOL/L (135-145); TOTAL CARBON DIOXIDE 28.7 MMOL/L (24-32); eCRCL 85 ML/MIN; eGFR > 90 ML/MIN
[2024-03-20] MEDS: amiodarone/D5 360MG/200ML BAG 200 ML IV SCH (23:00)
[2024-03-21] VITALS (22 sets, daily range): BP systolic 91–128; BP diastolic 59–80; PULSE 75–95; RESP 15–21; TEMP 97.6–98.1; O2SAT 94–98
[2024-03-21 04:37] LABS: BASOPHILS % (AUTO) 0.1 % (0-1); EOSINOPHILS % (AUTO) 0.1 % (0-6); HEMATOCRIT 28.3 % (42.0-52.0); HEMOGLOBIN 9.4 g/dl (14.0-17.9); LYMPHOCYTES # (AUTO) 1.4 X10'3 (1.1-4.8); LYMPHOCYTES % (AUTO) 9.7 % (21-51); MEAN CORPUSCULAR HEMOGLOBIN 31.2 PG (27.0-31.0); MEAN CORPUSCULAR HGB CONC 33.2 g/dL (33.0-36.5); MEAN CORPUSCULAR VOLUME 94.1 FL (78-98); MEAN PLATELET VOLUME 7.7 FL (7.4-10.4); MONOCYTES # (AUTO) 1.3 X10'3 (0-0.9); MONOCYTES % (AUTO) 9.1 % (2-12); NEUTROPHILS # (AUTO) 11.2 X10'3 (1.8-7.7); PLATELET COUNT 151 X10'3 (140-440); RED BLOOD COUNT 3.01 X10'6 (4.70-6.10); RED CELL DISTRIBUTION WIDTH 14.1 % (11.5-14.5); WHITE BLOOD COUNT 13.9 X10'3 (4.5-11.0)
[2024-03-21 04:48] LABS: ALBUMIN 2.7 G/DL (3.4-5.0); ANION GAP 5 (8-16); BLOOD UREA NITROGEN 10 MG/DL (7-18); BUN/CREATININE RATIO 12.2 (10.0-20.0); CALCIUM 8.1 MG/DL (8.5-10.1); CHLORIDE 104 MMOL/L (99-107); CREATININE 0.82 MG/DL (0.60-1.10); GLUCOSE 108 MG/DL (70-104); MAGNESIUM 2.3 MG/DL (1.5-2.4); PHOSPHORUS 2.7 MG/DL (2.3-4.5); POTASSIUM 4.4 MMOL/L (3.5-5.1); SODIUM 137 MMOL/L (135-145); TOTAL CARBON DIOXIDE 27.7 MMOL/L (24-32); eCRCL 87 ML/MIN; eGFR > 90 ML/MIN
[2024-03-21 06:22] LABS: ACT @ 1.70 U 292 SEC (193-297); ACT @ 2.84 U 410 SEC (260-420); BASELINE ACT 166 SEC (101-148)
[2024-03-21] MEDS: pantoprazole 40mg Tablet.DR PO SCH (07:32)
[2024-03-21] MEDS ORDERED: dextrose 50%-water 50ml dispensing syringe IV PRN ×4 (07:35)
[2024-03-21] MEDS ORDERED: glucagon, human recombinant 1mg kit SUBCUT PRN ×2 (07:35)
[2024-03-21] MEDS ORDERED: DEXTROSE 15 GM of carb/4 tabs (each vial/BOTTLE has 4 tablets) PO PRN ×4 (07:35)
[2024-03-21] MEDS: potassium chloride 8mEq ER tablet PO SCH (08:03)
[2024-03-21] MEDS: furosemide 20 MG/2 ML vial IV SCH (08:04)
[2024-03-21] MEDS: insulin glargine (Lantus) pen - multi-dose SQ ONE (08:05)
[2024-03-21 08:16] LABS: ABG BASE EXCESS 0.9 mmol/L (-2.0-2.0); ABG HCO3 24.4 mmol/L (22.0-26.0); ABG OXYGEN SATURATION 94.3 % (92-98.5); ABG PCO2 (T) 34.3 mmHg (35.0-48.0); ABG PH (T) 7.467 (7.340-7.440); ABG PO2 (T) 68.7 mmHg (75.0-100.0); ALLEN'S TEST POSITIVE; FCOHb 0.6 % (0.5-1.5); FHHb 5.6 % (0.0-5.0); FLOW 0 L/min; FMetHb 0.3 % (0.0-1.5); FO2Hb 93.5 % (94-97); MODE ROOM AIR; PATIENT TEMPERATURE 36.4; TOTAL HEMOGLOBIN 13.5 G/dl (14.0-17.9)
[2024-03-21] MEDS: amiodarone/D5 360MG/200ML BAG 200 ML IV SCH (10:41)
[2024-03-21] MEDS: INSULIN LISPRO 100 UNIT/ML INSULN.PEN MULTI-DOSE SQ SCH (11:59)
[2024-03-21] MEDS ORDERED: ketorolac trometh 15mg/ml vial 15 MG/ML ML IM SCH (14:00)
[2024-03-21] MEDS: ketorolac trometh 15mg/ml vial 15 MG/ML ML IV SCH (14:36)
[2024-03-22] VITALS (10 sets, daily range): BP systolic 93–142; BP diastolic 56–79; PULSE 76–120; RESP 14–19; TEMP 97.1–98.1; O2SAT 95–99
[2024-03-22 06:12] LABS: BASOPHILS % (AUTO) 0.1 % (0-1); EOSINOPHILS # (AUTO) 0.1 X10'3 (0-0.9); HEMATOCRIT 28.9 % (42.0-52.0); HEMOGLOBIN 9.5 g/dl (14.0-17.9); LYMPHOCYTES # (AUTO) 1.2 X10'3 (1.1-4.8); LYMPHOCYTES % (AUTO) 11.3 % (21-51); MEAN CORPUSCULAR HGB CONC 32.9 g/dL (33.0-36.5); MEAN CORPUSCULAR VOLUME 94.3 FL (78-98); MEAN PLATELET VOLUME 7.8 FL (7.4-10.4); MONOCYTES # (AUTO) 0.9 X10'3 (0-0.9); MONOCYTES % (AUTO) 7.9 % (2-12); NEUTROPHILS # (AUTO) 8.8 X10'3 (1.8-7.7); NEUTROPHILS % (AUTO) 79.7 % (42-75); PLATELET COUNT 176 X10'3 (140-440); RED BLOOD COUNT 3.07 X10'6 (4.70-6.10); RED CELL DISTRIBUTION WIDTH 14.1 % (11.5-14.5)
[2024-03-22 06:29] LABS: ALBUMIN 2.5 G/DL (3.4-5.0); ANION GAP 8 (8-16); BLOOD UREA NITROGEN 21 MG/DL (7-18); BUN/CREATININE RATIO 22.6 (10.0-20.0); CALCIUM 8.4 MG/DL (8.5-10.1); CHLORIDE 101 MMOL/L (99-107); CREATININE 0.93 MG/DL (0.60-1.10); GLUCOSE 219 MG/DL (70-104); PHOSPHORUS 3.2 MG/DL (2.3-4.5); POTASSIUM 4.4 MMOL/L (3.5-5.1); SODIUM 137 MMOL/L (135-145); TOTAL CARBON DIOXIDE 27.9 MMOL/L (24-32); eCRCL 77 ML/MIN; eGFR 81 ML/MIN
[2024-03-22] MEDS: JUVEN Shake w/Arg/Glut/Ca2+Bmb (Juven 19.3gm) pkt 240ml PO SCH (08:16)
[2024-03-22] MEDS: magnesium sulf-water 2g/50mL 50 ML IV ONE (09:10)
[2024-03-22] MEDS: amiodarone 200mg tablet PO SCH (09:11)
[2024-03-22] MEDS: metoprolol tartrate 12.5mg (1/2 tablet) PO ONE (09:11)
[2024-03-22] MEDS: insulin glargine (Lantus) pen - multi-dose SQ SCH (09:20)
[2024-03-22] MEDS ORDERED: ondansetron 4mg rapidly disintigrating tab PO PRN (13:56)
[2024-03-22] MEDS: metoprolol tartrate 25mg tablet PO SCH (19:45)
[2024-03-23 06:00] VITALS: BP 115/65; PULSE 85; RESP 16; TEMP 97.7; O2SAT 95
[2024-03-23 07:35] LABS: ALBUMIN 2.6 G/DL (3.4-5.0); ANION GAP 8 (8-16); BLOOD UREA NITROGEN 27 MG/DL (7-18); BUN/CREATININE RATIO 30.7 (10.0-20.0); CALCIUM 8.5 MG/DL (8.5-10.1); CHLORIDE 99 MMOL/L (99-107); CREATININE 0.88 MG/DL (0.60-1.10); GLUCOSE 238 MG/DL (70-104); MAGNESIUM 1.9 MG/DL (1.5-2.4); PHOSPHORUS 3.9 MG/DL (2.3-4.5); SODIUM 133 MMOL/L (135-145); TOTAL CARBON DIOXIDE 26.3 MMOL/L (24-32); eCRCL 81 ML/MIN; eGFR 86 ML/MIN
[2024-03-23 07:36] LABS: BASOPHILS % (AUTO) 0.2 % (0-1); EOSINOPHILS # (AUTO) 0.2 X10'3 (0-0.9); EOSINOPHILS % (AUTO) 2.5 % (0-6); HEMATOCRIT 29.5 % (42.0-52.0); HEMOGLOBIN 9.8 g/dl (14.0-17.9); LYMPHOCYTES # (AUTO) 1.5 X10'3 (1.1-4.8); LYMPHOCYTES % (AUTO) 15.2 % (21-51); MEAN CORPUSCULAR HEMOGLOBIN 30.8 PG (27.0-31.0); MEAN CORPUSCULAR HGB CONC 33.1 g/dL (33.0-36.5); MEAN CORPUSCULAR VOLUME 93.2 FL (78-98); MONOCYTES # (AUTO) 0.8 X10'3 (0-0.9); MONOCYTES % (AUTO) 8.1 % (2-12); NEUTROPHILS # (AUTO) 7.3 X10'3 (1.8-7.7); PLATELET COUNT 242 X10'3 (140-440); RED BLOOD COUNT 3.16 X10'6 (4.70-6.10); RED CELL DISTRIBUTION WIDTH 13.9 % (11.5-14.5); WHITE BLOOD COUNT 9.9 X10'3 (4.5-11.0)
[2024-03-23 08:00] VITALS: RESP 16; O2SAT 98
[2024-03-23] MEDS: metFORMIN 500mg tablet PO SCH (08:35)
[2024-03-23] MEDS: magnesium citrate 296ml oral solution PO ONE (09:16)
[2024-03-23 11:00] VITALS: BP 128/76; PULSE 79; RESP 14; TEMP 97.9; O2SAT 98
[2024-03-23] MEDS ORDERED: ASPI81TA53 PO (14:13)
[2024-03-23] MEDS ORDERED: FURO20TA4 PO (14:13)
[2024-03-23] MEDS ORDERED: TRAM50TA2 PO (14:13)
[2024-03-23] MEDS ORDERED: AMI200T PO (14:13)
[2024-03-23] MEDS ORDERED: PANT40TA54 PO (14:13)
[2024-03-23] MEDS ORDERED: LOP25T PO (14:13)
[2024-03-23 15:00] VITALS: BP 130/68; PULSE 80; RESP 16; TEMP 97.7; O2SAT 99
== END 2024-03-23 15:49 | disposition home health service (06) | DRG 234 ==
LOC: SSTAY O 10:34 → PCU 3S 15:34 → CICU 2S 03-19 13:04 → PCU 3S 03-21 13:42
PROVIDERS: ADMIT Thoracic Surgery (Cardiothoracic Vascular Surgery); ATTEND Thoracic Surgery (Cardiothoracic Vascular Surgery)
PROC: 4A023N7 Measurement of Cardiac Sampling and Pressure, Left Heart, Percutaneous Approach (ICD-10-PCS; principal; 2024-03-17)
PROC: B2111ZZ Fluoroscopy of Multiple Coronary Arteries using Low Osmolar Contrast (ICD-10-PCS; 2024-03-17)
PROC: B2151ZZ Fluoroscopy of Left Heart using Low Osmolar Contrast (ICD-10-PCS; 2024-03-17)
PROC: B41F1ZZ Fluoroscopy of Right Lower Extremity Arteries using Low Osmolar Contrast (ICD-10-PCS; 2024-03-17)
PROC: 02100Z9 Bypass Coronary Artery, One Artery from Left Internal Mammary, Open Approach (ICD-10-PCS; 2024-03-19)
PROC: 021109W Bypass Coronary Artery, Two Arteries from Aorta with Autologous Venous Tissue, Open Approach (ICD-10-PCS; 2024-03-19)
PROC: 06BP4ZZ Excision of Right Saphenous Vein, Percutaneous Endoscopic Approach (ICD-10-PCS; 2024-03-19)
PROC: 5A1221Z Performance of Cardiac Output, Continuous (ICD-10-PCS; 2024-03-19)
PROC: 02L70DK Occlusion of Left Atrial Appendage with Intraluminal Device, Open Approach (ICD-10-PCS; 2024-03-19)
PROC: B24BZZ4 Ultrasonography of Heart with Aorta, Transesophageal (ICD-10-PCS; 2024-03-19)
PROC: 5A09357 Assistance with Respiratory Ventilation, Less than 24 Consecutive Hours, Continuous Positive Airway Pressure (ICD-10-PCS; 2024-03-21)
PROC: 5A09357 Assistance with Respiratory Ventilation, Less than 24 Consecutive Hours, Continuous Positive Airway Pressure (ICD-10-PCS; 2024-03-22)
DX: I25.119 Atherosclerotic heart disease of native coronary artery with unspecified angina pectoris (principal); Z68.41 Body mass index [BMI] 40.0-44.9, adult; I10 Essential (primary) hypertension; E11.9 Type 2 diabetes mellitus without complications; I48.0 Paroxysmal atrial fibrillation; J44.9 Chronic obstructive pulmonary disease, unspecified; G47.33 Obstructive sleep apnea (adult) (pediatric); E03.9 Hypothyroidism, unspecified; G89.29 Other chronic pain; E66.01 Morbid (severe) obesity due to excess calories; Z79.899 Other long term (current) drug therapy; Z88.1 Allergy status to other antibiotic agents; Z90.49 Acquired absence of other specified parts of digestive tract; Z86.711 Personal history of pulmonary embolism; Z86.718 Personal history of other venous thrombosis and embolism; Z87.11 Personal history of peptic ulcer disease; Z95.5 Presence of coronary angioplasty implant and graft; G47.30 Sleep apnea, unspecified; Z79.4 Long term (current) use of insulin; Z79.01 Long term (current) use of anticoagulants; Z79.84 Long term (current) use of oral hypoglycemic drugs
CPT/HCPCS: 0232T; 93312; 93325; 93458; 36415; 36600; 71045; 71046; 71250; 80048; 80053; 82330; 82435; 82803; 82947; 82948; 83036; 83735; 84100; 84132; 84295; 84443; 85018; 85025; 85347; 85384; 85610; 85730; 86885; 86900; 86901; 86920; 87081; 93005; 93880; 93970; 94002; 94010; 97116; 97161; 97530; 99152; 99153; A4615; A4618; A6222; A6258; A6402; A6449; A7000; A7048; C1751; C1760; G0378; J0282; J0360; J0690; J1100; J1170; J1644; J1815; J1885; J1940; J2060; J2150; J2250; J2270; J2370; J2405; J2704; J2919; J3010; J3370; J3475; J3480; J3490; J7030; J7040; J7050; J7060; J7120; P9045; P9047; Q0163; Q9967

== ENCOUNTER 2024-04-06 11:49 | Outpatient (CLI) | payer MEDICARE ==
[~2024-04-06 11:49] MED LIST changes: +AMI200T PO; -ASPI-611 PO; +ASPI81TA53 PO; -BACL10TA2 PO; +CYAN-104 PO; -CYAN100070 PO; -DUTA0.5C36 PO; +DUTA0.5C40 PO; +FOLI0.4T14 PO; +FURO20TA4 PO; +INSU100V41 SQ; +LOP25T PO; -METO-411 PO; +PANT40TA54 PO
== END 2024-04-06 23:59 | disposition home or self-care (01) ==
LOC: RAD 11:49
PROVIDERS: ATTEND Thoracic Surgery (Cardiothoracic Vascular Surgery)
DX: J90 Pleural effusion, not elsewhere classified (principal)
CPT/HCPCS: 71046